=== PATIENT | female | born 1945 | race Caucasian/White ===

== ENCOUNTER 2019-06-23 09:48 | Day surgery (SDC) | payer MEDICARE ==
[~2019-06-23] VITALS: Ht 157.5 cm; Wt 51.6 kg
[2019-06-23] MEDS ORDERED: CALC1CAP8 PO (10:37)
[2019-06-23] MEDS ORDERED: ZOLE5INF IV (10:37)
[2019-06-23] MEDS ORDERED: METO25TA35 PO (10:37)
[2019-06-23] MEDS ORDERED: MAGNESIUM (10:37)
[2019-06-23] MEDS ORDERED: OMEP-110 PO (10:37)
[2019-06-23] MEDS ORDERED: RANI300T PO (10:37)
[2019-06-23] MEDS ORDERED: ATOR20TA86 PO (10:37)
[2019-06-23] MEDS ORDERED: LISI-170 PO (10:37)
[2019-06-23 10:39] VITALS: BP 173/91
[2019-06-23] MEDS ORDERED: LIDOCAINE-MPF 1%, 2ML ONE (10:52)
[2019-06-23] MEDS ORDERED: LACTATED RINGERS 1,000 ML IV SCH (10:55)
[2019-06-23 11:24] LABS: ANION GAP 5 mmol/L (5-15); CHLORIDE 110 mmol/L (98-107); CREATININE 0.75 mg/dL (0.55-1.02)
[2019-06-23] MEDS ORDERED: SIMETHICONE DROPS 40 MG/0.6 ML BOTTLE ONE (13:16)
[2019-06-23] MEDS ORDERED: PROPOFOL 10 MG/ML, 20ML ONE ×3 (13:18→14:08)
== END 2019-06-23 14:30 | disposition home or self-care (01) ==
LOC: OR 09:48
PROVIDERS: ATTEND Internal Medicine
DX: D12.2 Benign neoplasm of ascending colon (principal); I10 Essential (primary) hypertension; E78.5 Hyperlipidemia, unspecified; K21.9 Gastro-esophageal reflux disease without esophagitis; Z88.0 Allergy status to penicillin; Z88.5 Allergy status to narcotic agent
CPT/HCPCS: 36415; 45385; 80048; 88305; 93005; J2704; J7120